=== PATIENT | male | born 1995 | race Caucasian/White ===

== ENCOUNTER 2022-02-04 16:27 | Emergency (ER) | payer MEDICAID ==
[~2022-02-04] VITALS: Ht 175.3 cm; Wt 57.0 kg
[2022-02-04 16:50] VITALS: BP 125/79
== END 2022-02-04 18:53 | disposition left against medical advice (07) ==
LOC: ER 16:46
DX: Z53.21 Procedure and treatment not carried out due to patient leaving prior to being seen by health care provider (principal)

== ENCOUNTER 2022-02-05 22:01 | Inpatient (IN) | payer MEDICAID, OTHER ==
[~2022-02-05] VITALS: Ht 175.3 cm; Wt 56.8 kg
[2022-02-05] MEDS ORDERED: HYDROCODONE/ACETAMINOPHEN 5/325MG TABLET PO ONE (22:15)
[2022-02-05] MEDS ORDERED: MORPHINE SULFATE 4 MG/ML CPJ (NOT FOR IM USE) IV ONE (23:15)
[2022-02-05] MEDS ORDERED: ONDANSETRON HCL 4MG/2ML INJ IV ONE (23:15)
[2022-02-05] MEDS ORDERED: VANCOMYCIN 1G PREMIX 200 ML IV SCH (23:15)
[2022-02-05 23:27] LABS: BASOPHILS % 0.1 % (0.0-2.0); EOSINOPHILS % 0.3 % (0.0-5.0); HEMATOCRIT. 49.5 % (42.0-52.0); HEMOGLOBIN. 16.9 g/dL (14.0-18.0); MEAN CORPUSCULAR HEMOGLOBIN 31.8 pg (28.0-32.0); MEAN CORPUSCULAR VOLUME 93.3 fL (80.0-94.0); MEAN PLATELET VOLUME 6.8 fl (7.4-10.4); MONOCYTES % 4.1 % (2.0-8.0); NEUTROPHILS % 85.5 % (40.0-76.0); PLATELET 261 x1000/uL (130-400); RED BLOOD CELL COUNT 5.31 mill/uL (4.7-6.1); RED CELL DISTRIBUTION WIDTH 14.1 % (11.6-14.6)
[2022-02-05 23:37] LABS: CHLORIDE 107 mEq/L (98-107)
[2022-02-06] MEDS ORDERED: ONDANSETRON HCL 4MG/2ML INJ IV SCH (00:45)
[2022-02-06] MEDS ORDERED: MORPHINE SULFATE 4 MG/ML CPJ (NOT FOR IM USE) IV SCH (00:45)
[2022-02-06] MEDS ORDERED: MORPHINE SULFATE 4 MG/ML CPJ (NOT FOR IM USE) IV ONE (04:15)
[2022-02-06] MEDS: SODIUM CHLORIDE 0.9% 1,000 ML IV SCH ×2 (10:15→23:35)
[2022-02-06] MEDS ORDERED: ONDANSETRON HCL 4MG/2ML INJ IV PRN (10:15)
[2022-02-06] MEDS ORDERED: CLONIDINE 0.1MG TABLET PO PRN (10:15)
[2022-02-06] MEDS ORDERED: MORPHINE SULFATE 2 MG/ML CPJ (NOT FOR IM USE) IV PRN (10:15)
[2022-02-06] MEDS ORDERED: IPRATROPIUM/ALBUTEROL 0.5-3(2.5)MG/3ML NEB HHN PRN (10:15)
[2022-02-06] MEDS ORDERED: ACETAMINOPHEN 325MG TABLET PO PRN ×2 (10:15)
[2022-02-06] MEDS ORDERED: DOCUSATE SODIUM 100MG CAPSULE PO PRN (10:15)
[2022-02-06] MEDS ORDERED: LORAZEPAM 0.5MG TABLET PO PRN (10:15)
[2022-02-06] MEDS ORDERED: NALOXONE HCL 0.4MG/ML VIAL IV PRN (10:30)
[2022-02-06] MEDS: HYDROCODONE/ACETAMINOPHEN 5/325MG TABLET PO PRN ×2 (10:37→23:08)
[2022-02-06] MEDS ORDERED: CEFTRIAXONE 1 G PREMIX 50 ML IV SCH (10:45)
[2022-02-06 12:00] VITALS: BP 129/80
[2022-02-06] MEDS ORDERED: AZITHROMYCIN 500 MG TABLET PO NR (12:00)
[2022-02-06] MEDS ORDERED: CEFTRIAXONE 1,000 MG in DEXTROSE 5% WATER 50 ML IV SCH (13:00)
[2022-02-06] MEDS ORDERED: LORAZEPAM 2MG/ML CPJ IV PRN (17:15)
[2022-02-06] MEDS: HYDROMORPHONE HCL/PF 2MG/ML CPJ IV PRN (20:25)
[2022-02-06 20:56] VITALS: BP 135/72
[2022-02-06] MEDS ORDERED: VANCOMYCIN 500 MG in DEXT 5% WATER 100 ML IV SCH (21:00)
[2022-02-06] MEDS: AMPICILLIN SOD/SULBACTAM NA 3 G in SODIUM CHLORIDE 0.9% 100 ML IV SCH (22:58)
[2022-02-06] MEDS: FLUCONAZOLE 100MG TABLET PO SCH (23:08)
[2022-02-07] VITALS: BP 126/74
[2022-02-07 04:00] VITALS: BP 122/68
[2022-02-07] MEDS: AMPICILLIN SOD/SULBACTAM NA 3 G in SODIUM CHLORIDE 0.9% 100 ML IV SCH ×4 (05:39→22:10)
[2022-02-07 06:07] LABS: HEPATITIS B SURFACE ANTIGEN NEGATIVE
[2022-02-07 08:00] VITALS: BP 118/73
[2022-02-07] MEDS: HYDROCORTISONE 2.5% CREAM 20GM TOP SCH ×3 (09:45→22:00)
[2022-02-07] MEDS: FLUCONAZOLE 100MG TABLET PO SCH (09:56)
[2022-02-07] MEDS: HYDROMORPHONE HCL/PF 2MG/ML CPJ IV PRN ×2 (11:23→22:09)
[2022-02-07 11:30] LABS: BASOPHILS % 0.1 % (0.0-2.0); EOSINOPHILS % 0.3 % (0.0-5.0); HEMOGLOBIN. 15.9 g/dL (14.0-18.0); LYMPHOCYTES % 15.6 % (20.0-50.0); MEAN CORPUSCULAR HEMOGLOBIN 31.7 pg (28.0-32.0); MEAN CORPUSCULAR VOLUME 91.4 fL (80.0-94.0); MONOCYTES % 7.6 % (2.0-8.0); NEUTROPHILS % 76.4 % (40.0-76.0); PLATELET 256 x1000/uL (130-400); RED BLOOD CELL COUNT 5.03 mill/uL (4.7-6.1); RED CELL DISTRIBUTION WIDTH 13.5 % (11.6-14.6)
[2022-02-07 11:45] LABS: CHLORIDE 101 mEq/L (98-107)
[2022-02-07 12:00] VITALS: BP 110/73
[2022-02-07] MEDS ORDERED: TETANUS AND DIPHTHERIA TOX/PF 0.5ML SYR (ADULT) IM ONE (13:00)
[2022-02-07] MEDS ORDERED: PENICILLIN G BENZATHINE 2,400,000 UNITS/4ML SYR IM NR (14:00)
[2022-02-07] MEDS ORDERED: VANCOMYCIN 750MG PMX (XELLIA) 150 ML IV SCH (14:00)
[2022-02-07 16:00] VITALS: BP 100/80
[2022-02-07] MEDS: SODIUM CHLORIDE 0.9% 1,000 ML IV SCH (16:16)
[2022-02-07] MEDS: VANCOMYCIN 750MG PREMIX 150 ML IV SCH (16:50)
[2022-02-07] MEDS: HYDROCODONE/ACETAMINOPHEN 5/325MG TABLET PO PRN (17:03)
[2022-02-07 20:00] VITALS: BP 120/83
[2022-02-07 20:13] LABS: *AMPHETAMINES SCREEN URINE NEGATIVE (NEGATIVE); *BARBITURATES SCREEN URINE NEGATIVE (NEGATIVE); *BENZODIAZEPINES SCREEN URINE NEGATIVE (NEGATIVE); *COCAINE SCREEN URINE NEGATIVE (NEGATIVE); CANNABINOID URINE SCREEN PRESUMTIVE POSITIVE (NEGATIVE); METHADONE URINE SCREEN NEGATIVE (NEGATIVE); OPIATES URINE SCREEN PRESUMTIVE POSITIVE (NEGATIVE); PHENCYCLIDINE URINE SCREEN NEGATIVE (NEGATIVE)
[2022-02-08] MEDS: HYDROCODONE/ACETAMINOPHEN 5/325MG TABLET PO PRN ×2 (01:27→18:05)
[2022-02-08] MEDS: SODIUM CHLORIDE 0.9% 1,000 ML IV SCH ×2 (02:15→15:32)
[2022-02-08] MEDS: AMPICILLIN SOD/SULBACTAM NA 3 G in SODIUM CHLORIDE 0.9% 100 ML IV SCH ×4 (03:00→21:30)
[2022-02-08 04:00] VITALS: BP 107/69
[2022-02-08] MEDS: VANCOMYCIN 750MG PREMIX 150 ML IV SCH ×3 (06:00→18:04)
[2022-02-08] MEDS: HYDROCORTISONE 2.5% CREAM 20GM TOP SCH ×3 (06:49→21:30)
[2022-02-08 06:53] LABS: BASOPHILS % 0.2 % (0.0-2.0); EOSINOPHILS % 0.3 % (0.0-5.0); HEMATOCRIT. 44.1 % (42.0-52.0); HEMOGLOBIN. 15.6 g/dL (14.0-18.0); LYMPHOCYTES % 12.8 % (20.0-50.0); MEAN CORPUSCULAR HEMOGLOBIN 31.7 pg (28.0-32.0); MEAN PLATELET VOLUME 7.4 fl (7.4-10.4); MONOCYTES % 7.4 % (2.0-8.0); NEUTROPHILS % 79.3 % (40.0-76.0); PLATELET 300 x1000/uL (130-400); RED CELL DISTRIBUTION WIDTH 13.2 % (11.6-14.6)
[2022-02-08 07:11] LABS: CHLORIDE 100 mEq/L (98-107)
[2022-02-08 08:00] VITALS: BP 113/75
[2022-02-08] MEDS: HYDROMORPHONE HCL/PF 2MG/ML CPJ IV PRN ×3 (08:44→21:43)
[2022-02-08] MEDS: FLUCONAZOLE 100MG TABLET PO SCH (08:47)
[2022-02-08 12:00] VITALS: BP 123/81
[2022-02-08 16:00] VITALS: BP 135/88
[2022-02-08 20:00] VITALS: BP 101/63
[2022-02-09] VITALS: BP 112/76
[2022-02-09] MEDS: HYDROCODONE/ACETAMINOPHEN 5/325MG TABLET PO PRN ×3 (01:50→06:21)
[2022-02-09] MEDS: HYDROMORPHONE HCL/PF 2MG/ML CPJ IV PRN ×5 (03:07→21:11)
[2022-02-09] MEDS: AMPICILLIN SOD/SULBACTAM NA 3 G in SODIUM CHLORIDE 0.9% 100 ML IV SCH ×4 (03:07→21:23)
[2022-02-09 04:00] VITALS: BP 98/47
[2022-02-09] MEDS: HYDROCORTISONE 2.5% CREAM 20GM TOP SCH ×3 (05:07→21:30)
[2022-02-09] MEDS: VANCOMYCIN 750MG PREMIX 150 ML IV SCH ×2 (05:08→17:42)
[2022-02-09] MEDS: SODIUM CHLORIDE 0.9% 1,000 ML IV SCH ×2 (05:08→17:43)
[2022-02-09 06:13] LABS: BASOPHILS % 0.3 % (0.0-2.0); EOSINOPHILS % 0.9 % (0.0-5.0); HEMATOCRIT. 43.2 % (42.0-52.0); HEMOGLOBIN. 15.3 g/dL (14.0-18.0); LYMPHOCYTES % 20.2 % (20.0-50.0); MEAN CORPUSCULAR HEMOGLOBIN 32.1 pg (28.0-32.0); MEAN CORPUSCULAR VOLUME 90.8 fL (80.0-94.0); MEAN PLATELET VOLUME 7.1 fl (7.4-10.4); MONOCYTES % 7.1 % (2.0-8.0); NEUTROPHILS % 71.5 % (40.0-76.0); PLATELET 311 x1000/uL (130-400); RED BLOOD CELL COUNT 4.76 mill/uL (4.7-6.1); RED CELL DISTRIBUTION WIDTH 13.4 % (11.6-14.6)
[2022-02-09 06:28] LABS: CHLORIDE 101 mEq/L (98-107)
[2022-02-09] MEDS ORDERED: POLYMYXIN B SULFATE 500000 UNITS/VIAL ONE (07:09)
[2022-02-09] MEDS ORDERED: VANCOMYCIN HCL 1 GM/VIAL ONE (07:10)
[2022-02-09] MEDS ORDERED: LIDOCAINE HCL 1% 50ML VIAL (10MG/ML) ONE (07:28)
[2022-02-09] MEDS ORDERED: PROPOFOL 200MG/20ML VIAL IV ONE (07:28)
[2022-02-09] MEDS ORDERED: DEXAMETHASONE 4MG/ML 1ML VIAL ONE (07:28)
[2022-02-09] MEDS ORDERED: ONDANSETRON HCL 4MG/2ML INJ ONE (07:28)
[2022-02-09] MEDS ORDERED: FENTANYL CITRATE/PF 50MCG/ML 2ML VIAL ONE ×2 (07:29→07:45)
[2022-02-09] MEDS ORDERED: MIDAZOLAM HCL 2 MG/2 ML VIAL ONE ×2 (07:29→07:45)
[2022-02-09] MEDS ORDERED: MEPERIDINE HCL/PF 25MG/ML CPJ IV PRN (08:15)
[2022-02-09] MEDS ORDERED: LABETALOL 5MG/ML SYR 20 MG/4 ML SYRINGE IV PRN (08:15)
[2022-02-09] MEDS ORDERED: ONDANSETRON HCL 4MG/2ML INJ IV PRN (08:15)
[2022-02-09] MEDS: FLUCONAZOLE 100MG TABLET PO SCH (09:00)
[2022-02-09 12:00] VITALS: BP 119/69
[2022-02-09 16:00] VITALS: BP 114/49
[2022-02-09 20:00] VITALS: BP 111/67
[2022-02-10] VITALS: BP 104/46
[2022-02-10] MEDS: HYDROMORPHONE HCL/PF 2MG/ML CPJ IV PRN ×3 (03:26→22:46)
[2022-02-10] MEDS: AMPICILLIN SOD/SULBACTAM NA 3 G in SODIUM CHLORIDE 0.9% 100 ML IV SCH ×4 (03:26→22:15)
[2022-02-10 04:00] VITALS: BP 104/45
[2022-02-10 04:07] LABS: NEISSERIA GONORRHOEAE NAA Negative (Negative)
[2022-02-10] MEDS: VANCOMYCIN 750MG PREMIX 150 ML IV SCH ×2 (06:11→18:56)
[2022-02-10] MEDS: HYDROCORTISONE 2.5% CREAM 20GM TOP SCH ×3 (06:11→22:16)
[2022-02-10 07:56] LABS: BASOPHILS % 0.1 % (0.0-2.0); HEMATOCRIT. 41.8 % (42.0-52.0); HEMOGLOBIN. 14.8 g/dL (14.0-18.0); LYMPHOCYTES % 11.9 % (20.0-50.0); MEAN CORPUSCULAR VOLUME 90.4 fL (80.0-94.0); MEAN PLATELET VOLUME 7.1 fl (7.4-10.4); MONOCYTES % 5.8 % (2.0-8.0); NEUTROPHILS % 82.2 % (40.0-76.0); PLATELET 355 x1000/uL (130-400); RED BLOOD CELL COUNT 4.62 mill/uL (4.7-6.1); RED CELL DISTRIBUTION WIDTH 13.3 % (11.6-14.6)
[2022-02-10 08:00] VITALS: BP 117/65
[2022-02-10 08:06] LABS: CHLORIDE 104 mEq/L (98-107)
[2022-02-10] MEDS: FLUCONAZOLE 100MG TABLET PO SCH (09:22)
[2022-02-10] MEDS: SODIUM CHLORIDE 0.9% 1,000 ML IV SCH ×2 (10:35→20:55)
[2022-02-10 12:00] VITALS: BP 107/52
[2022-02-10] MEDS: HYDROCODONE/ACETAMINOPHEN 5/325MG TABLET PO PRN (12:28)
[2022-02-10 16:00] VITALS: BP 102/63
[2022-02-11] MEDS: AMPICILLIN SOD/SULBACTAM NA 3 G in SODIUM CHLORIDE 0.9% 100 ML IV SCH ×3 (03:42→17:09)
[2022-02-11] MEDS: HYDROMORPHONE HCL/PF 2MG/ML CPJ IV PRN ×4 (03:43→21:40)
[2022-02-11 04:00] VITALS: BP 103/48
[2022-02-11] MEDS: VANCOMYCIN 750MG PREMIX 150 ML IV SCH (06:34)
[2022-02-11] MEDS: HYDROCORTISONE 2.5% CREAM 20GM TOP SCH ×3 (06:35→21:38)
[2022-02-11 08:00] VITALS: BP 106/51
[2022-02-11 08:19] LABS: CHLORIDE 105 mEq/L (98-107)
[2022-02-11 08:25] LABS: VANCOMYCIN TROUGH 1.4 ug/mL (5.0-10.0)
[2022-02-11] MEDS: FLUCONAZOLE 100MG TABLET PO SCH (09:07)
[2022-02-11 12:00] VITALS: BP 110/62
[2022-02-11 16:00] VITALS: BP 114/74
[2022-02-11] MEDS ORDERED: VANCOMYCIN 750MG PREMIX 150 ML IV SCH (17:00)
[2022-02-11] MEDS: SODIUM CHLORIDE 0.9% 1,000 ML IV SCH ×2 (19:10→23:35)
[2022-02-11 20:00] VITALS: BP 98/50
[2022-02-11] MEDS ORDERED: NALOXONE HCL 0.4MG/ML VIAL IV PRN (21:30)
[2022-02-12] VITALS: BP 104/51
[2022-02-12 04:00] VITALS: BP 101/60
[2022-02-12] MEDS: HYDROMORPHONE HCL/PF 2MG/ML CPJ IV PRN ×3 (05:06→15:10)
[2022-02-12] MEDS: HYDROCORTISONE 2.5% CREAM 20GM TOP SCH ×3 (05:06→21:53)
[2022-02-12 06:31] LABS: CHLORIDE 106 mEq/L (98-107)
[2022-02-12 06:50] LABS: HEMATOCRIT. 42.9 % (42.0-52.0); HEMOGLOBIN. 15.3 g/dL (14.0-18.0); MEAN CORPUSCULAR HEMOGLOBIN 32.4 pg (28.0-32.0); MEAN CORPUSCULAR VOLUME 90.6 fL (80.0-94.0); MEAN PLATELET VOLUME 7.1 fl (7.4-10.4); PLATELET 370 x1000/uL (130-400); RED BLOOD CELL COUNT 4.74 mill/uL (4.7-6.1); RED CELL DISTRIBUTION WIDTH 13.3 % (11.6-14.6)
[2022-02-12 08:00] VITALS: BP 111/60
[2022-02-12 09:28] LABS: ATYPICAL LYMPHOCYTES 1
[2022-02-12 09:29] LABS: PLATELET ESTIMATE NORMAL
[2022-02-12] MEDS: HYDROCODONE/ACETAMINOPHEN 5/325MG TABLET PO PRN ×2 (10:26→19:00)
[2022-02-12 12:00] VITALS: BP 110/58
[2022-02-12] MEDS ORDERED: VANCOMYCIN 1GM PMX (XELLIA) 200 ML IV SCH (12:00)
[2022-02-12] MEDS: SODIUM CHLORIDE 0.9% 1,000 ML IV SCH (12:37)
[2022-02-12 16:00] VITALS: BP 115/67
[2022-02-12 20:00] VITALS: BP 120/62
[2022-02-12] MEDS: VANCOMYCIN 750MG PREMIX 150 ML IV SCH (20:25)
[2022-02-13] VITALS: BP 114/62
[2022-02-13] MEDS: HYDROMORPHONE HCL/PF 2MG/ML CPJ IV PRN ×5 (00:35→23:59)
[2022-02-13] MEDS: SODIUM CHLORIDE 0.9% 1,000 ML IV SCH ×2 (02:15→15:35)
[2022-02-13 04:00] VITALS: BP 110/60
[2022-02-13] MEDS: VANCOMYCIN 750MG PREMIX 150 ML IV SCH ×3 (05:20→22:40)
[2022-02-13] MEDS: HYDROCORTISONE 2.5% CREAM 20GM TOP SCH ×3 (05:20→22:41)
[2022-02-13 05:37] LABS: HEMATOCRIT. 44.6 % (42.0-52.0); HEMOGLOBIN. 15.5 g/dL (14.0-18.0); MEAN CORPUSCULAR HEMOGLOBIN 31.6 pg (28.0-32.0); MEAN CORPUSCULAR VOLUME 90.9 fL (80.0-94.0); MEAN PLATELET VOLUME 7.1 fl (7.4-10.4); PLATELET 409 x1000/uL (130-400); RED BLOOD CELL COUNT 4.91 mill/uL (4.7-6.1); RED CELL DISTRIBUTION WIDTH 13.7 % (11.6-14.6)
[2022-02-13 07:42] LABS: CHLORIDE 102 mEq/L (98-107)
[2022-02-13 08:00] VITALS: BP 143/65
[2022-02-13 10:20] LABS: PLATELET ESTIMATE SLIGHTLY INCREASED
[2022-02-13] MEDS ORDERED: HYDROMORPHONE HCL/PF 2MG/ML CPJ IV PRN (11:45)
[2022-02-13] MEDS ORDERED: TRAMADOL 50MG TABLET PO PRN (11:45)
[2022-02-13] MEDS ORDERED: HYDROCODONE/ACETAMINOPHEN 5/325MG TABLET PO PRN (11:45)
[2022-02-13 12:00] VITALS: BP 124/78
[2022-02-13] MEDS: HYDROCODONE/ACETAMINOPHEN 10/325MG TABLET PO PRN ×2 (12:26→23:32)
[2022-02-13 16:00] VITALS: BP 131/67
[2022-02-13 20:00] VITALS: BP 112/62
[2022-02-14] VITALS: BP 138/75
[2022-02-14 03:40] LABS: CHLORIDE 103 mEq/L (98-107)
[2022-02-14 03:45] LABS: VANCOMYCIN TROUGH 22.8 ug/mL (5.0-10.0)
[2022-02-14 04:00] VITALS: BP 128/68
[2022-02-14] MEDS: SODIUM CHLORIDE 0.9% 1,000 ML IV SCH ×2 (04:55→21:36)
[2022-02-14] MEDS: HYDROCORTISONE 2.5% CREAM 20GM TOP SCH ×3 (06:03→21:46)
[2022-02-14] MEDS: VANCOMYCIN 750MG PREMIX 150 ML IV SCH ×3 (06:05→21:37)
[2022-02-14] MEDS: HYDROMORPHONE HCL/PF 2MG/ML CPJ IV PRN ×2 (06:06→21:36)
[2022-02-14 08:00] VITALS: BP 108/64
[2022-02-14] MEDS: HYDROCODONE/ACETAMINOPHEN 10/325MG TABLET PO PRN (09:52)
[2022-02-14] MEDS ORDERED: HYDROMORPHONE HCL/PF 2MG/ML CPJ IV PRN (10:45)
[2022-02-14 12:00] VITALS: BP 114/68
[2022-02-14 16:00] VITALS: BP 130/66
[2022-02-14 20:00] VITALS: BP 102/73
[2022-02-15] VITALS: BP 120/57
[2022-02-15] MEDS: HYDROCODONE/ACETAMINOPHEN 10/325MG TABLET PO PRN ×2 (02:08→11:02)
[2022-02-15] MEDS: HYDROMORPHONE HCL/PF 2MG/ML CPJ IV PRN ×3 (02:33→18:28)
[2022-02-15 04:00] VITALS: BP 118/54
[2022-02-15] MEDS: VANCOMYCIN 750MG PREMIX 150 ML IV SCH ×3 (05:54→21:34)
[2022-02-15] MEDS: HYDROCORTISONE 2.5% CREAM 20GM TOP SCH ×3 (05:55→21:38)
[2022-02-15] MEDS: SODIUM CHLORIDE 0.9% 1,000 ML IV SCH ×2 (07:35→21:35)
[2022-02-15 20:00] VITALS: BP 122/71
[2022-02-16] VITALS: BP 98/52
[2022-02-16] MEDS: HYDROMORPHONE HCL/PF 2MG/ML CPJ IV PRN ×4 (00:50→23:46)
[2022-02-16] MEDS: HYDROCORTISONE 2.5% CREAM 20GM TOP SCH ×3 (06:31→22:00)
[2022-02-16] MEDS: VANCOMYCIN 750MG PREMIX 150 ML IV SCH ×3 (06:36→23:35)
[2022-02-16 06:40] LABS: HEMATOCRIT. 47.1 % (42.0-52.0); HEMOGLOBIN. 16.4 g/dL (14.0-18.0); MEAN CORPUSCULAR HEMOGLOBIN 31.8 pg (28.0-32.0); MEAN CORPUSCULAR VOLUME 91.5 fL (80.0-94.0); PLATELET 404 x1000/uL (130-400); RED BLOOD CELL COUNT 5.15 mill/uL (4.7-6.1); RED CELL DISTRIBUTION WIDTH 13.5 % (11.6-14.6)
[2022-02-16 06:52] LABS: CHLORIDE 102 mEq/L (98-107)
[2022-02-16 08:00] VITALS: BP 114/69
[2022-02-16] MEDS: HYDROCODONE/ACETAMINOPHEN 10/325MG TABLET PO PRN ×2 (09:38→18:33)
[2022-02-16] MEDS: SODIUM CHLORIDE 0.9% 1,000 ML IV SCH (10:15)
[2022-02-16 12:00] VITALS: BP 117/77
[2022-02-16 14:48] LABS: PLATELET ESTIMATE NORMAL
[2022-02-16 16:00] VITALS: BP 123/60
[2022-02-16] MEDS ORDERED: TRAM50TA3 PO ×2 (17:48)
[2022-02-16] MEDS ORDERED: HYDR-4009 PO ×2 (17:48)
[2022-02-16] MEDS ORDERED: HYDR453.3 TOP ×2 (17:48)
[2022-02-16] MEDS ORDERED: NALO4SPR BOTHNSTRLS ×2 (17:48)
[2022-02-16] MEDS ORDERED: B25 PO ×2 (17:48)
[2022-02-16] MEDS ORDERED: DOXY100T2 MT ×2 (17:48)
[2022-02-16 20:00] VITALS: BP 126/94
[2022-02-16] MEDS: DIPHENHYDRAMINE 25MG CAPSULE PO PRN (20:28)
[2022-02-17] VITALS: BP 108/71
[2022-02-17] MEDS: HYDROCODONE/ACETAMINOPHEN 10/325MG TABLET PO PRN ×2 (02:07→09:09)
[2022-02-17] MEDS: HYDROCORTISONE 2.5% CREAM 20GM TOP SCH ×2 (06:00→14:00)
[2022-02-17] MEDS: HYDROMORPHONE HCL/PF 2MG/ML CPJ IV PRN ×3 (06:14→18:05)
[2022-02-17] MEDS: VANCOMYCIN 750MG PREMIX 150 ML IV SCH ×2 (06:14→14:36)
[2022-02-17 08:00] VITALS: BP 122/65
[2022-02-17] MEDS ORDERED: HYDR-4009 MT (08:48)
[2022-02-17] MEDS ORDERED: TRAM50TA MT (08:48)
[2022-02-17] MEDS ORDERED: DIPH25TA24 MT (08:48)
[2022-02-17] MEDS ORDERED: DOXY100C5 MT (08:48)
[2022-02-17] MEDS ORDERED: NALO4SPR BOTHNSTRLS (08:48)
[2022-02-17] MEDS ORDERED: HYDR453.3 TP (08:48)
[2022-02-17] MEDS: DIPHENHYDRAMINE 25MG CAPSULE PO PRN (11:30)
[2022-02-17 12:00] VITALS: BP 121/78
[2022-02-17] MEDS: SODIUM CHLORIDE 0.9% 1,000 ML IV SCH (14:37)
[2022-02-17 16:00] VITALS: BP 113/67
[2022-02-17 18:05] VITALS: BP 121/78
== END 2022-02-17 18:40 | disposition left against medical advice (07) | DRG 364 ==
LOC: ER 22:01 → 6EST 02-06 01:27 → ENRESERV 02-06 08:04
PROVIDERS: ADMIT Internal Medicine; ATTEND Internal Medicine
PROC: 0J9J0ZZ Drainage of Right Hand Subcutaneous Tissue and Fascia, Open Approach (ICD-10-PCS; principal; 2022-02-09)
DX: L02.511 Cutaneous abscess of right hand (principal); R65.10 Systemic inflammatory response syndrome (SIRS) of non-infectious origin without acute organ dysfunction; A53.9 Syphilis, unspecified; D72.829 Elevated white blood cell count, unspecified; S61.234A Puncture wound without foreign body of right ring finger without damage to nail, initial encounter; L03.113 Cellulitis of right upper limb; B95.62 Methicillin resistant Staphylococcus aureus infection as the cause of diseases classified elsewhere; N47.6 Balanoposthitis; Z53.29 Procedure and treatment not carried out because of patient's decision for other reasons
CPT/HCPCS: 36415; 73130; 73201; 73220; 80048; 80053; 80202; 80305; 83605; 84145; 85025; 86592; 86593; 86703; 86705; 86709; 86780; 86803; 87070; 87075; 87077; 87186; 87340; 87491; 87591; 90714; 99285; J0295; J0561; J0696; J1100; J1170; J2250; J2270; J2405; J2704; J3010; J3370; J3490; J7030; J7050; J7060; Q0163